=== PATIENT | male | born 1980 | race Caucasian/White ===

== ENCOUNTER 2023-02-11 09:24 | Inpatient (IN) | payer SELFPAY ==
[2023-02-11 10:07] LABS: #Basophils 0.1 thou/uL (0.0-0.2); #Eosinphils 0.1 thou/uL (0.0-0.7); #Monocytes 0.6 thou/uL (0.11-0.59); #Neutrophils 5.3 thou/uL (1.40-6.50); %Basophils 0.7 % (0.0-1.0); %Eosinophils 0.9 % (0.0-10.0); %Lymphocytes 30.7 % (21.0-51.0); %Monocytes 6.5 % (0.0-10.0); %Neutrophils 60.1 % (42.0-75.0); Hemoglobin 12.8 g/dL (14.0-18.0); Mean Corpuscular HGB CONC 33.9 g/dL (32.0-36.0); Mean Corpuscular Hemoglobin 31.1 pg (27.0-31.0); Mean Platelet Volume 10.3 fL (7.4-10.4); Platelet Count 341 10x3/uL (130-400); RBC Distribution Width 12.5 % (11.5-14.5); Red Blood Cell (RBC) Count 4.11 mill/uL (4.70-6.10); White Blood Cell (WBC) Count 8.8 10x3/uL (4.8-10.8)
[2023-02-11 10:12] LABS: Actual Bicarbonate (HCO3v) 21.3 mEq/L (22-28); Analyzer IN Cardio ER; Base Excess -2.6 mEq/L (-2.0 to +3.0); Calcium, Ionized (venous) 1.04 mmol/L (1.16-1.32); Chloride (VBG) 98 mmol/L (98-106); Hematocrit-VBG 46 % (42.0-52.0); Hemoglobin (Hb) 15.7 g/dL (13.2-17.3); Potassium (VBG) 4.62 mmol/L (3.70-5.30); Sodium 133.6 mmol/L (133-146); pH (venous) 7.403 (7.32-7.43)
[2023-02-11 10:34] LABS: ALT (SGPT) 68 U/L (8-55); AST (SGOT) 85 U/L (5-34); Albumin 3.7 g/dL (3.5-5.0); Alkaline Phosphatase 108 U/L (40-110); Anion Gap 21 mmol/L (10-20); BUN (Urea Nitrogen) 5 mg/dL (8.9-20.6); Bilirubin, Total 0.2 mg/dL (0.2-1.2); Calc. Creatinine Clearance 0 mL/min (70-130); Calcium 8.9 mg/dL (7.8-10.44); Carbon Dioxide 19 mmol/L (22-29); Chloride 97 mmol/L (98-107); Estimated GFR 114; Globulin 3.6 g/dL (2.4-3.5); Glucose 355 mg/dL (70-105); Potassium 4.7 mmol/L (3.5-5.1); Protein, Total 7.3 g/dL (6.0-8.3); Sodium 132 mmol/L (136-145)
[2023-02-11] MEDS ORDERED: Insulin Regular 300 UNITS/3 ML VIAL ONE (11:14)
[2023-02-11] MEDS ORDERED: Ondansetron PF 4 MG/2 ML Vial IVP PRN (11:15)
[2023-02-11] MEDS ORDERED: Dextrose 5% in Water 1,000 ML IV PRN (11:16)
[2023-02-11] MEDS ORDERED: Dextrose 50% Abboject 50 ML SYRINGE SLOW IVP PRN (11:16)
[2023-02-11 11:30] LABS: Cholesterol 313 mg/dl (< 200 Desired); HDL Cholesterol 26 mg/dL (>60 Neg Risk)
[2023-02-11 11:56] LABS: Triglycerides 1290 mg/dL (Less than 150)
[2023-02-11 12:03] LABS: Hemoglobin A1c Greater than 14.0 % (4.0-6.0)
[2023-02-11] MEDS ORDERED: HumaLOG 300 UNITS/3 ML VIAL SC SCH (13:00)
[2023-02-11 13:33] VITALS: BMI 26.7
[2023-02-11] MEDS: Sodium Chloride 0.9% 1,000 ML IV SCH (14:04)
[2023-02-11] MEDS: HumaLOG 300 UNITS/3 ML VIAL SC SCH (16:54)
[2023-02-11] MEDS ORDERED: metFORMIN 500 MG TAB PO SCH (17:00)
[2023-02-11] MEDS ORDERED: Insulin Glargine 30 UNITS/0.3 ML VIAL SC SCH (17:29)
[2023-02-11] MEDS: Acetaminophen 325 MG TAB PO PRN (20:22)
[2023-02-11] MEDS: Atorvastatin Calcium 40 MG TAB PO SCH (20:22)
[2023-02-11] MEDS: HumaLOG 300 UNITS/3 ML VIAL SC PRN (21:06)
[2023-02-12] MEDS: Sodium Chloride 0.9% 1,000 ML IV SCH ×2 (03:35→17:55)
[2023-02-12 04:47] LABS: #Basophils 0.1 thou/uL (0.0-0.2); #Eosinphils 0.1 thou/uL (0.0-0.7); #Monocytes 0.4 thou/uL (0.11-0.59); #Neutrophils 3.2 thou/uL (1.40-6.50); %Basophils 0.9 % (0.0-1.0); %Eosinophils 1.6 % (0.0-10.0); %Lymphocytes 44.1 % (21.0-51.0); %Monocytes 6.1 % (0.0-10.0); %Neutrophils 45.7 % (42.0-75.0); Hemoglobin 12.8 g/dL (14.0-18.0); Mean Corpuscular HGB CONC 33.5 g/dL (32.0-36.0); Mean Corpuscular Hemoglobin 31.5 pg (27.0-31.0); Mean Corpuscular Volume 94.1 fl (78.0-98.0); Mean Platelet Volume 10.7 fL (7.4-10.4); Platelet Count 354 10x3/uL (130-400); RBC Distribution Width 12.7 % (11.5-14.5); Red Blood Cell (RBC) Count 4.06 mill/uL (4.70-6.10)
[2023-02-12] MEDS: HumaLOG 300 UNITS/3 ML VIAL SC PRN ×2 (04:48→20:46)
[2023-02-12 05:10] LABS: ALT (SGPT) 62 U/L (8-55); AST (SGOT) 65 U/L (5-34); Albumin 3.5 g/dL (3.5-5.0); Alkaline Phosphatase 101 U/L (40-110); Anion Gap 16 mmol/L (10-20); BUN (Urea Nitrogen) 4 mg/dL (8.9-20.6); Bilirubin, Total 0.2 mg/dL (0.2-1.2); Calc. Creatinine Clearance 156 mL/min (70-130); Calcium 8.9 mg/dL (7.8-10.44); Carbon Dioxide 21 mmol/L (22-29); Chloride 100 mmol/L (98-107); Estimated GFR 115; Globulin 3.3 g/dL (2.4-3.5); Glucose 320 mg/dL (70-105); Potassium 3.9 mmol/L (3.5-5.1); Protein, Total 6.8 g/dL (6.0-8.3); Sodium 133 mmol/L (136-145)
[2023-02-12] MEDS ORDERED: Insulin Regular 300 UNITS/3 ML VIAL IVP SCH (08:00)
[2023-02-12] MEDS: HumaLOG 300 UNITS/3 ML VIAL SC SCH ×4 (08:27→20:46)
[2023-02-12] MEDS ORDERED: Insulin Glargine 30 UNITS/0.3 ML VIAL SC SCH ×2 (09:00→09:30)
[2023-02-12] MEDS: Atorvastatin Calcium 40 MG TAB PO SCH (20:36)
[2023-02-13] MEDS: HumaLOG 300 UNITS/3 ML VIAL SC PRN ×2 (05:13→20:15)
[2023-02-13] MEDS: Sodium Chloride 0.9% 1,000 ML IV SCH (06:15)
[2023-02-13 08:48] LABS: Anion Gap 11 mmol/L (10-20); BUN (Urea Nitrogen) 6 mg/dL (8.9-20.6); Calc. Creatinine Clearance 180 mL/min (70-130); Calcium 8.9 mg/dL (7.8-10.44); Carbon Dioxide 24 mmol/L (22-29); Chloride 105 mmol/L (98-107); Estimated GFR 120; Glucose 235 mg/dL (70-105); Sodium 136 mmol/L (136-145)
[2023-02-13] MEDS ORDERED: Insulin Glargine 30 UNITS/0.3 ML VIAL SC SCH ×2 (09:00)
[2023-02-13] MEDS: HumaLOG 300 UNITS/3 ML VIAL SC SCH ×3 (09:30→17:24)
[2023-02-13] MEDS: Acetaminophen 325 MG TAB PO PRN (13:13)
[2023-02-13] MEDS: Atorvastatin Calcium 40 MG TAB PO SCH (20:14)
[2023-02-14] MEDS: HumaLOG 300 UNITS/3 ML VIAL SC PRN ×2 (00:52→04:18)
[2023-02-14 07:03] LABS: Anion Gap 13 mmol/L (10-20); BUN (Urea Nitrogen) 6 mg/dL (8.9-20.6); Calc. Creatinine Clearance 180 mL/min (70-130); Calcium 9.2 mg/dL (7.8-10.44); Carbon Dioxide 23 mmol/L (22-29); Chloride 103 mmol/L (98-107); Estimated GFR 120; Glucose 259 mg/dL (70-105); Sodium 135 mmol/L (136-145)
[2023-02-14] MEDS: HumaLOG 300 UNITS/3 ML VIAL SC SCH ×2 (08:39→12:16)
[2023-02-14] MEDS ORDERED: Insulin Glargine 30 UNITS/0.3 ML VIAL SC SCH (09:00)
[2023-02-14 16:08] VITALS: BP 130/90; TEMP 97.8
== END 2023-02-14 17:41 | disposition home or self-care (01) | DRG 638 ==
LOC: SUATTDRO 09:24 → ERS 09:24 → SURG A 10:53 → OBSVTOIN 12:55
PROVIDERS: ADMIT Internal Medicine; ATTEND Internal Medicine
DX: E11.65 Type 2 diabetes mellitus with hyperglycemia (principal); E87.1 Hypo-osmolality and hyponatremia; E87.20 Acidosis, unspecified; E66.9 Obesity, unspecified; E78.00 Pure hypercholesterolemia, unspecified; E86.0 Dehydration; G43.909 Migraine, unspecified, not intractable, without status migrainosus; J45.909 Unspecified asthma, uncomplicated; Z68.26 Body mass index [BMI] 26.0-26.9, adult
CPT/HCPCS: 36415; 36416; 80048; 80053; 80061; 82010; 82805; 83036; 85025; J1650; J1815; J7050